=== PATIENT | female | born 1960 | race Caucasian/White ===

== ENCOUNTER 2022-06-20 13:56 | Emergency (ER) | payer MEDICARE, MEDICAID, SELFPAY ==
[2022-06-20 13:57] VITALS: BP 102/68; PULSE 69; RESP 15; TEMP 36.2; O2SAT 98; BMI 30.4
--- NOTE | 2022-06-20 14:19 | EX.ED.DYSGE1 ---
HPI <LIYA Taveras - Last Filed: 06/20/22 15:55> History of Present Illness Chief Complaint: Other, Pain/Inj Narrative Narrative: 62-year-old female with right chest dialysis port had almost completely finished dialysis yesterday when the catheter clogged. SNF nurse today tried to flush with alteplase without success so she was sent to the ED. Chest port was put in 2 years ago at [place]. She has no other complaints. PFSH <LIYA Taveras - Last Filed: 06/20/22 15:55> [facility] Medical History (Updated 06/20/22 @ 15:55 by LIYA Taveras) Anemia CVA (cerebral vascular accident) ESRD (end stage renal disease) on dialysis Fracture of left lower extremity GERD (gastroesophageal reflux disease) Hypotension Malignant neoplasm of cervix Metabolic encephalopathy Transient ischemic attack (TIA) Allergy/AdvReac Type Severity Reaction Status Date / Time No Known Allergies Allergy Verified 06/20/22 13:59 Surgical History (Updated 06/20/22 @ 14:54 by Flower Contreras) Presence urogenital implant Social History Smoking Status: Never smoker ROS <LIYA Taveras - Last Filed: 06/20/22 15:55> ROS ED ROS Narrative Constitutional: Negative for fever, chills, malaise. Eyes: Negative for visual change. ENT: Negative for sore throat, rhinorrhea. CVS: Negative for palpitations, chest pain, syncope. Respiratory: Negative for shortness of breath, cough. GI: Negative for abdominal pain, nausea, vomiting. : Negative for dysuria, hematuria or frequency. Neuro: Negative for headache, motor/sensory dysfunction. Skin: Negative for rash, abscess, or wound. Musc: Negative for joint pain, swelling, trauma. Heme: Negative for easy bruising, bleeding, lymphadenopathy. EXAM <LIYA Taveras - Last Filed: 06/20/22 15:55> Physical Exam Narrative Exam Narrative: CONST: Patient sitting in no acute distress. EYES: Normal inspection. NECK: Normal inspection. RESP: No respiratory distress, CTAB. CVS: Regular rate and rhythm, no murmur, no gallop. Back: Normal inspection, no CVA tenderness. SKIN: Right chest port intact with no surrounding erythema or drainage. EXTREMITIES: Normal appearance, no pedal edema. NEURO: Oriented x4. PSYCH: Normal affect. Const Vital Signs: 06/20/22 13:57 Temperature 97.2 F L Temperature Source Temporal Pulse Rate 69 Respiratory Rate 15 Blood Pressure 102/68 Blood Pressure Mean 79 Pulse Ox 98 Oxygen Delivery Method Room Air <Dr. Adan Chavarria MD - Last Filed: 06/20/22 16:24> Physical Exam Const Vital Signs: 06/20/22 13:57 Temperature 97.2 F L Temperature Source Temporal Pulse Rate 69 Respiratory Rate 15 Blood Pressure 102/68 Blood Pressure Mean 79 Pulse Ox 98 Oxygen Delivery Method Room Air [facility] <LIYA Taveras - Last Filed: 06/20/22 15:55> [facility] Narrative Medical decision making narrative: Patient had a clogged right chest tunneled dialysis catheter. Alteplase flush was successful and patient will be discharged back to SNF. <Dr. Adan Chavarria MD - Last Filed: 06/20/22 16:24> [facility] Narrative Medical decision making narrative: Patient had a clogged right chest tunneled dialysis catheter. Alteplase flush was successful and patient will be discharged back to SNF. I have personally performed a face to face assessment of the patient and have reviewed the ANNIE Note. I performed a substantive portion of the visit including all aspects of the following. My herrera findings include: History is remarkable for vas cath not functioning. Patient does not know if it is the arterial or venous portion of the port. Dr. Demi Sanchez called in prior to arrival. Discussed use of alteplase. She does not know if at a place was administered at the nursing facility. Patient has no complaints. The tunneled Vas-Cath has been in place for 2+ years. She denies fever, chills night sweats. She denies drainage from the site. Exam is the arterial port is occluded. She has no acute findings. Medical Decision Making attempt to alleviate the obstruction using at a place. The tPA (2 mg per 2 mL) was instilled by me. The tPA was left in place for 45 minutes. It did alleviate the obstruction. Patient be discharged back to nursing facility Other additions or changes: Discharge to nursing facility and surgeon was made aware. Discharge Plan Triage Chief Complaint: Other, Pain/Inj ED Midlevel Provider: Maryse Walden ED Provider: Adan Chavarria Dx/Rx/DC Orders Clinical Impression: Complication, dialysis catheter clot or failure Instructions: Caring for Your Hemodialysis Access Activity Restrictions/Additional Instructions: Resume dialysis as scheduled Disposition Disposition: Home, Self Care
[2022-06-20] MEDS: Alteplase 2 MG/2 ML Vial IV (15:06)
== END 2022-06-20 16:20 | disposition home or self-care (01) ==
PROVIDERS: Emergency Provider Emergency Medicine; Visit Provider Emergency Medicine
DX: T82.818A Embolism due to vascular prosthetic devices, implants and grafts, initial encounter (principal); N18.6 End stage renal disease; K21.9 Gastro-esophageal reflux disease without esophagitis; Z86.73 Personal history of transient ischemic attack (TIA), and cerebral infarction without residual deficits; Y82.8 Other medical devices associated with adverse incidents
CPT/HCPCS: 99282; J2997; A4216